=== PATIENT | female | born 1970 | race Caucasian/White ===

== ENCOUNTER 2020-09-07 17:51 | Emergency (ER) | payer OTHER ==
[2020-09-07 17:56] VITALS: BP 131/79; PULSE 79; RESP 20; TEMP 97.9
[2020-09-07] MEDS ORDERED: DIPH,PERTUS(ACELL)TETVAC-LF 0.5 ML VIAL IM ONE (18:05)
[2020-09-07] MEDS ORDERED: IBUPROFEN 600 MG TAB PO STA (18:05)
--- NOTE | 2020-09-07 18:15 | ED ---
Upper Extremity HPI - General Chief Complaint: Extremity Injury, Upper Stated Complaint: Fall, Hand injury Source: patient, RN notes reviewed, old records reviewed Mode of arrival: ambulatory Limitations: no limitations - History of Present Illness Initial Comments: 50-year-old white female, alert and oriented 4, ambulates to the emergency room with complaints of falling about 2 hours ago while walking her dog. Patient states that she fell onto concrete and tried to put her left hand out to stop her fall. Patient states that her little finger was angulated and she pushed it back into place but has been increasingly painful and now bruising. States that it is 8 out of 10 throbbing pain. Patient states that her daughter cleaned out her knee and put some bacitracin ointment on it but her knee does not hurt. Her tetanus is not up-to-date. She is pack-a-day smoker. She denies any medical history. She denies any dizziness and states that she just tripped on a grate. Patient did apply ice at the time but did not take any medications. MD Complaint: Injury to:: left, hand, finger -: hour(s) (Fifth digit2) Other Injuries: LLE (Abrasions to knee) Place: outdoors Severity scale (1-10): 8 Improves With: immobilization Worsens With: movement of extremity, other Context: fall (Outpatient) Associated Symptoms: denies other symptoms - Related Data Allergies Allergy/AdvReac Type Severity Reaction Status Date / Time codeine Allergy Anaphylaxis Verified 09/07/20 17:56 Penicillins Allergy Anaphylaxis Verified 09/07/20 17:56 Review of Systems ROS Statement: Those systems with pertinent positive or pertinent negative responses have been documented in the HPI. ROS Other: All systems not noted in ROS Statement are negative. Past Medical History Past Medical History: No Reported History History of Any Multi-Drug Resistant Organisms: None Reported Past Surgical History: Tubal Ligation Past Psychological History: No Psychological Hx Reported Smoking Status: Current every day smoker Past Alcohol Use History: None Reported Past Drug Use History: None Reported General Exam Limitations: no limitations General appearance: alert, in no apparent distress Head exam: Present: atraumatic, normocephalic, normal inspection Eye exam: Present: normal appearance, PERRL, EOMI. Absent: scleral icterus, conjunctival injection, periorbital swelling Pupils: Present: normal accommodation ENT exam: Present: normal exam, normal oropharynx, mucous membranes moist Neck exam: Present: normal inspection, full ROM. Absent: tenderness, meningismus, lymphadenopathy, thyromegaly Respiratory exam: Present: normal lung sounds bilaterally. Absent: respiratory distress, wheezes, rales, rhonchi, stridor, chest wall tenderness, accessory muscle use, decreased breath sounds, prolonged expiratory Cardiovascular Exam: Present: regular rate, normal rhythm, normal heart sounds. Absent: systolic murmur, diastolic murmur, rubs, gallop, clicks, JVD GI/Abdominal exam: Present: soft, normal bowel sounds. Absent: distended, tenderness, guarding, rebound, rigid Left Forearm Wrist exam: Present: normal inspection, full ROM. Absent: tenderness, swelling, abrasion, laceration, ecchymosis, deformity, crepitus, erythema Hand Wrist exam: Present: tenderness, ecchymosis (Fourth and fifth metacarpal) Neuro motor exam: Present: wrist extension intact, thumb opposition intact, thumb IP flexion intact, thumb adduction intact Neurosensory exam: Present: radial nerve intact, ulnar nerve intact, median nerve intact Vascular: Present: normal capillary refill, radial pulse, ulnar pulse. Absent: vascular compromise Left Hip exam: Present: normal inspection, full ROM Upper Leg exam: Present: normal inspection, full ROM Knee exam: Present: full ROM, tenderness, abrasion. Absent: swelling, laceration, deformity, crepitus, dislocation, erythema, effusion Lower Leg exam: Present: normal inspection, full ROM Ankle exam: Present: normal inspection, full ROM Neurovascular tendon exam: Present: no vascular compromise. Absent: extremity cold to touch, pallor, foot drop Back exam: Present: normal inspection, full ROM. Absent: tenderness, CVA tenderness (R), CVA tenderness (L), muscle spasm, paraspinal tenderness, vertebral tenderness, rash noted Neurological exam: Present: alert, oriented X3, CN II-XII intact Psychiatric exam: Present: normal affect, normal mood Skin exam: Present: warm, dry, intact, normal color. Absent: rash, cyanosis, diaphoretic, erythema, petechiae, pallor, mottled Course Vital Signs 09/07/20 17:53 Temperature 97.9 F Pulse Rate 79 Respiratory 20 Rate Blood Pressure 131/79 O2 Sat by Pulse 99 Oximetry Procedures - Orthopedic Splinting/Casting Injury #1 Side: left Upper Extremity Injury Location: hand Upper Extremity Immobilizer: ulnar gutter Lower Extremity Immobilizer: synthetic pre-padded splint (Capillary refill less than 2 seconds before and after splinting. No numbness or tingling prior to her post-splinting.) Medical Decision Making - Medical Decision Making There is a nondisplaced traverse fracture across the base of the proximal phalanx of the left fifth digit. Metacarpals are intact and carpal bones are intact. Patient placed in an ulnar gutter splint and referred to orthopedics. Patient states that she is on her way back to [place] today and will follow-up with her own orthopedic. Directed to ice and keep elevated and take Motrin for pain. Patient offered tetanus and she refused. Case discussed with Dr. Huang. Disposition Clinical Impression: Metacarpal bone fracture Disposition: HOME SELF-CARE Condition: Good Instructions (If sedation given, give patient instructions): Hand Fracture (ED) Additional Instructions: Keep hand elevated, ice and Motrin every 6 hours for pain. Follow-up with orthopedics next week. Wear the splint until seen by orthopedics. Return to emergency room with increased pain, swelling or numbness. Is patient prescribed a controlled substance at d/c from ED?: No Referrals: Nonstaff,Physician [Primary Care Provider] - 1-2 days Time of Disposition: 19:02
--- NOTE | 2020-09-07 18:47 | XR ---
EXAMINATION TYPE: XR hand complete LT DATE OF EXAM: 09/07/2020 COMPARISON: NONE HISTORY: Pain TECHNIQUE: 3 views FINDINGS: There is nondisplaced transverse fracture across the base of the proximal phalanx of the li ttle finger left hand. There is no dislocation. Metacarpals are intact. Carpal bones are intact. IMPRESSION: Acute fracture of the little finger as above.
[2020-09-07] MEDS ORDERED: BACITRACIN OINT 1 EACH PACKET TOPICAL ONE (18:59)
== END 2020-09-07 19:19 | disposition home or self-care (01) ==
LOC: EC 17:51
DX: S62.347A Nondisplaced fracture of base of fifth metacarpal bone, left hand, initial encounter for closed fracture (principal); S80.212A Abrasion, left knee, initial encounter; F17.200 Nicotine dependence, unspecified, uncomplicated; Z88.0 Allergy status to penicillin; Z88.5 Allergy status to narcotic agent; W18.30XA Fall on same level, unspecified, initial encounter; Y93.01 Activity, walking, marching and hiking
CPT/HCPCS: 29125; 99284